=== PATIENT | male | born 1970 | race African-American/Black ===

== ENCOUNTER 2016-04-28 21:40 | Emergency (ER) | payer OTHER ==
[~2016-04-28] VITALS: Ht 180.3 cm; Wt 127.0 kg
[2016-04-28] MEDS ORDERED: MORPHINE SULFATE 4 MG/ML INJ IV ONE (22:00)
[2016-04-28] MEDS ORDERED: ONDANSETRON HCL 4 MG/2 ML VIAL IVP ONE (22:00)
[2016-04-28] MEDS ORDERED: LISI10TA3 PO (22:04)
[2016-04-28 22:05] VITALS: BP 203/101; PULSE 84; RESP 16; TEMP 98.5; O2SAT 96
[2016-04-28] MEDS ORDERED: IOHEXOL 350 MG/ML 10 ML VIAL (for RAD DIAG) IV ONE (22:37)
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
[2016-04-28 22:58] LABS: BASOPHIL % 0.8 % (0.0-2.0); EOSINOPHIL # 0.2 TH/MM3 (0-0.4); HEMATOCRIT 44.2 % (39.0-51.0); HEMO FLAGS DIFF FINAL; LYMPH % 33.3 % (9.0-44.0); MEAN CELL VOLUME 83.5 FL (80.0-100.0); MEAN CORPUSCULAR HEMOGLOBIN 28.5 PG (27.0-34.0); MEAN CORPUSCULAR HGB CONC 34.1 % (32.0-36.0); MONO % 11.5 % (0.0-8.0); NEUT % 50.4 % (16.0-70.0); PLATELET COUNT 219 TH/MM3 (150-450); RED BLOOD COUNT 5.29 MIL/MM3 (4.50-5.90); RED CELL DISTRIBUTION WIDTH 16.2 % (11.6-17.2)
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
[2016-04-28 23:06] LABS: APTT (PATIENT) 23.6 SEC (24.3-30.1); INTERNATIONAL NORMALIZED RATIO 0.9 RATIO; PROTHROMBIN TIME - PATIENT 10.4 SEC (9.8-11.6)
[2016-04-28 23:56] LABS: POTASSIUM 4.4 MEQ/L (3.5-5.1)
[2016-04-29] MEDS ORDERED: ACETAMINOPHEN/HYDROcodone 325 MG/5 MG TAB PO ONE (00:15)
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
[2016-04-29 00:30] VITALS: RESP 16
[2016-04-29] MEDS ORDERED: HYDR-3533 PO (00:43)
[2016-04-29 01:29] VITALS: BP 200/101
== END 2016-04-29 01:31 | disposition home or self-care (01) ==
LOC: NEPA 21:40
DX: S43.102A Unspecified dislocation of left acromioclavicular joint, initial encounter (principal); S00.83XA Contusion of other part of head, initial encounter; I10 Essential (primary) hypertension; H91.92 Unspecified hearing loss, left ear; Z72.0 Tobacco use; V29.3XXA Motorcycle rider (driver) (passenger) injured in unspecified nontraffic accident, initial encounter
CPT/HCPCS: 29240; 70450; 71260; 72125; 73030; 73564; 74177; 80048; 85025; 85610; 85730; 86850; 86900; 86901; 96374; 96375; 99284; J2270; J2405; Q9967